=== PATIENT | female | born 1955 | race Caucasian/White ===

== ENCOUNTER 2020-08-04 09:33 | Emergency (ER) | payer OTHER, SELFPAY ==
[2020-08-04 09:45] VITALS: BP 145/91; PULSE 87; RESP 22; TEMP 36.8; O2SAT 100; BMI 25.9
--- NOTE | 2020-08-04 10:21 | HMH.EDUTC ---
[place] Disposition Clinical Impression: Vertigo Disposition: Home, Self-Care Condition on Discharge: Good Instructions: Vertigo, DI for Vertigo, Meclizine Additional Instructions: Slow steady movements When getting up from bed allow feet to dangle off the side of bed before getting up to help prevent falling Return if needed Follow up with your Family Doctor if no improvements or any worsening of symptoms Straight to ER if any life threatening symptoms Take medication as prescribed Prescriptions: Meclizine HCl [Antivert 12.5mg tablet] 12.5 mg PO TID PRN #15 tab PRN Reason: Dizziness Transmission Status: Pending to [facility] # methylPREDNISolone [Medrol 4mg tab] 4 mg PO DIRECTED #21 tab Transmission Status: Pending to [facility] # Referrals: Stefan Thomas [Primary Care Provider] - As needed Time of Disposition: 10:25 Medical Decision Making - Zhou Inquiry Pt receiving controlled substance: No Zhou was queried for this patient: No Vital Signs: 08/04/20 09:45 Temperature 98.2 F Temperature Source Oral Pulse Rate [Right Brachial] 87 Respiratory Rate 22 Blood Pressure [Right Arm] 145/91 H Blood Pressure Mean [Right Arm] 109 Blood Pressure Source [Right Arm] Automatic Cuff Blood Pressure Position [Right Arm] Sitting 02 Sat by Pulse Oximetry 100 Oxygen Delivery Method Room Air Orders (Tests/Meds): ED MEDICATIONS Discontinued Medications Generic Name Dose Route Start Last Admin Trade Name Freq PRN Reason Stop Dose Admin Meclizine HCl 12.5 mg 08/04/20 10:23 08/04/20 10:29 Meclizine 12.5mg Tablet PO 08/04/20 10:24 12.5 mg ONCE ONE Administration Medical Decision Narrative: Discussed with patient and due to age recommended transfer to the ED for CT of head if warranted and patient declined States that she thinks its from her ears and wanted to try medication and if no improvement will follow up with her doctor for further testing Patient states that dizziness is much better after medication [place] HPI - General Stated complaint: dizziness Time Seen by Provider: 08/04/20 10:21 Mode of Arrival: Ambulatory Source of Information: Patient Limitations: No Limitations Description of Symptoms (Recalled from Triage Doc. by RN): PATIENT C/O BEING DIZZY AND OFF-BALANCE SINCE YESTERDAY HEENT Symptoms (Recalled from RN notes): Yes Resp Symptoms (Recalled from RN notes): No Skin Symptoms (Recalled from RN notes): No MS Symptoms (Recalled from RN notes): No Functional Status (Recalled from RN notes): WNL - History of Present Illness Provider Complaint: Patient states that she has been feeling off balance and dizzy for several days after she was bent over working in the garden and raised up quickly States that when she turns to fast it feels like the room is spinning around her States that today she was still having symptoms so she came in States that she is not having any vision problems, denies headache or problems with vision - Related Data Previous Rx's Medication Instructions Recorded Meclizine HCl [Antivert 12.5mg 12.5 mg PO TID PRN #15 tab 08/04/20 tablet] methylPREDNISolone [Medrol 4mg 4 mg PO DIRECTED #21 tab 08/04/20 tab] Allergies Allergy/AdvReac Type Severity Reaction Status Date / Time No Known Allergies Allergy Verified 08/04/20 10:04 - Worker's Comp Is this a Worker's Comp case?: No [facility] History - Hepatitis A Screen Drug use history?: No High risk sexual behaviors?: No History of sexually transmitted infection?: No Currently employed?: No Childcare worker?: No Do you have indoor plumbing?: Yes Do you have electricity?: Yes Attestation statement:: This patient has been screened for Hepatitis A risk factors. I have reviewed the patient's past medical history: Yes Medical History: Reports:: Cancer - Social History Alcohol Intake: never Occupational Status: other ROS Obtained: Yes All systems reviewe
[2020-08-04 11:02] VITALS: BP 145/91; PULSE 87; RESP 22; TEMP 36.8; O2SAT 100
== END 2020-08-04 11:05 | disposition home or self-care (01) ==
PROVIDERS: Emergency Provider Nurse Practitioner; PCP Family Medicine
DX: R42 Dizziness and giddiness (principal)
CPT/HCPCS: 99202; G0463

== ENCOUNTER 2022-06-15 09:16 | Emergency (ER) | payer MEDICARE, OTHER, SELFPAY ==
[2022-06-15 09:30] VITALS: BP 153/84; PULSE 86; RESP 22; TEMP 36.8; O2SAT 100; BMI 24.0
--- NOTE | 2022-06-15 09:43 | EXP.UTC ---
Discharge Plan Disposition Patient Disposition: Home, Self-Care Condition: Good Prescriptions Prescriptions: No Action hydrochlorothiazide 12.5 mg tablet 12.5 mg PO DAILY Label Comments: TAKE 1 TABLET BY MOUTH EVERY DAY Referrals Follow up/Referrals: Brian Vargas JR, MD [Physician] - See instructions (Call office on Saturday for appointment) Issa Jorge DO [Staff Physician] - See instructions (Call office on Saturday for appointment) Sarbjit Dhillon [Primary Care Provider] - See instructions Activity Restrictions/Add. Instructions Additional Instructions/Restrictions: *RICE, Rest the extremity, Ice 15-20 minutes 3-4 times daily, Compress- wear the mike wrap as discussed as much as possible to help reduce swelling and pain, Elevate the extremity when at rest *Mike wrap/Orthoglass is for support and help control swelling, Be sure that is not to tight but not to loose either *Elevate when resting? *Ibuprofen 600-800mg every 6-8 hours as needed for pain an inflammation. If need something more can take Tylenol in between doses of Ibuprofen to help Call Orthopedic office for appointment for further evaluation and treatment Immediately follow up with your family doctor for new or worsening of symptoms, or no noticeable improvement over the next 3-5 days Clinical Impressions Clinical Impression: Fracture of wrist Qualifiers: Encounter type: initial encounter Fracture type: closed Laterality: left Qualified Code(s): S62.102A - Fracture of unspecified carpal bone, left wrist, initial encounter for closed fracture Instructions Patient Instructions: DI for Wrist Fracture, How To Perform RICE (Rest, Ice, Compress, Elevate), Ibuprofen Discharge ED Provider: Letty Hanley [facility] General Stated complaint: [id number] fell at home, left wrist Mode of Arrival: Ambulatory Source of Information: Patient Limitations: No Limitations Time Seen by Provider: 06/15/22 09:43 Description of Symptoms (Recalled from Triage Doc. by RN): PATIENT REPORTS SHE SLIPPED ON THE BATHROOM FLOOR LAST NIGHT AND INJURED LEFT WRIST HEENT Symptoms (Recalled from RN notes): No Resp Symptoms (Recalled from RN notes): No Skin Symptoms (Recalled from RN notes): No MS Symptoms (Recalled from RN notes): Yes Functional Status (Recalled from RN notes): WNL History of Present Illness Provider Complaint: Patient states that she slipped and fell getting out to the shower last night and landed on her left wrist States that she could still move her fingers and stuff so she thought it would be ok but when she woke up this morning her wrist and forearm was swollen and hurt when she would move it Related Data Home Medications Medication Instructions Recorded Confirmed hydrochlorothiazide 12.5 mg tablet 12.5 mg PO DAILY Hypertension 06/15/22 06/15/22 Allergies Allergy/AdvReac Type Severity Reaction Status Date / Time No Known Allergies Allergy Verified 08/04/20 10:04 Worker's Comp Is this a Worker's Comp case?: No PFSH ON LICENSE OF [facility] Disclaimer: The information contained in this section may have been updated after the patient was seen, as this information can be updated by other users. Social History Smoking Status: Unknown if ever smoked alcohol intake: never current occupational status: other Travel in the last 8 weeks: None ROS Obtained: Yes All systems reviewed & no additional complaints except as documented and Yes Systems reviewed as appropriate & no additional complaints except as documented ENT Ears, Nose, Mouth, and Throat: Reports system reviewed and no additional complaints, except as documented and Reports as per HPI Cardiovascular Cardiovascular: Reports system reviewed and no additional complaints, except as documented and Reports as per HPI Respiratory Respiratory: Reports system reviewed and no additional complaints, except as documented and Reports as per HPI Gastrointestinal Gastrointestingal: Reports system reviewed and
--- NOTE | 2022-06-15 09:44 | XR_ITS ---
FINAL REPORT CLINICAL HISTORY: Acute left forearm pain after fall COMPARISON: None FINDINGS: AP and lateral views of the left forearm are obtained. There is no prior exam for comparison. The proximal 2/3 to the left forearm without acute abnormality. There is no joint effusion at the elbow. Distal radius and ulnar styloid process fractures; please see wrist exam for further details. The wrist and elbow are intact. The soft tissues appear normal. IMPRESSION: Distal radius and ulnar styloid process fractures as described on wrist radiograph. Otherwise no acute abnormality. Reviewed, Interpreted and Dictated by Suyapa Senior MD Transcribed by Babs Lane Authenticated and [facility]
--- NOTE | 2022-06-15 09:44 | XR_ITS ---
FINAL REPORT CLINICAL HISTORY: Acute left wrist pain, fall COMPARISON: None FINDINGS: AP, oblique, and lateral views of the left wrist were obtained. There is no prior exam for comparison. There is a comminuted intra-articular fracture of the distal left radius with dorsal angulation of the distal fracture fragments. There is a nondisplaced ulnar styloid process fracture. There is mild degenerative joint disease. Diffuse soft tissue edema is noted. IMPRESSION: Left distal radius and ulnar styloid process fractures as above. Reviewed, Interpreted and Dictated by Suyapa Senior MD Transcribed by Babs Lane Authenticated and [facility]
[2022-06-15 11:59] VITALS: BP 153/84; PULSE 86; RESP 22; TEMP 36.8; O2SAT 100
== END 2022-06-15 12:06 | disposition home or self-care (01) ==
PROVIDERS: Emergency Provider Nurse Practitioner; PCP Family Medicine
DX: S62.102A Fracture of unspecified carpal bone, left wrist, initial encounter for closed fracture (principal); W01.0XXA Fall on same level from slipping, tripping and stumbling without subsequent striking against object, initial encounter
CPT/HCPCS: 29125; 73090; 73110; 99212; 99214; G0463

== ENCOUNTER → 2022-06-26 14:11 | Outpatient (CLI) | payer MEDICARE, OTHER, SELFPAY ==
--- NOTE | 2022-06-26 14:34 | ECG_ITS ---
APPROVED REPORT Exam: Resting ECG HR:85 bpm ECG Measurements Heart Rate 85 AXES MT 95 P 49 QRSd 85 QRS 41 QT 362 T 38 QTc 404 Conclusion SINUS RHYTHM WITH SHORT MT INTERVAL BORDERLINE ECG UNCONFIRMED REPORT Electronically signed by : Scot Paredes MD 06/26/2022 20:40:25
--- NOTE | 2022-06-26 15:04 | XR_ITS ---
FINAL REPORT CLINICAL HISTORY: pre op, cough FINDINGS: Two views of the chest were obtained. The heart size and pulmonary vascularity are within normal limits. The mediastinum is normal. No acute pulmonary abnormality is identified. There is no pneumothorax. The bony thorax is intact. There are postoperative changes in the right axilla. IMPRESSION: No active cardiopulmonary disease. Reviewed, Interpreted and Dictated by Pasquale Estrada III, MD Transcribed by Jessica Massey Authenticated and [facility]
[2022-06-26 15:32] LABS: Basophils # 0.1 K/mm3 (0-0.2); Basophils % 1.2 % (0.1-2.0); Eosinophils # 0.2 K/mm3 (0.0-0.4); Eosinophils % 2.4 % (0.1-12.0); Hematocrit 42.8 % (37.0-47.0); Hemoglobin 14.2 g/dL (12.2-16.2); Lymphocytes # 1.4 K/mm3 (0.7-4.5); Lymphocytes % 16.4 % (10-50); Mean Corpuscular HGB Conc 33.2 g/dL (31.8-35.4); Mean Corpuscular Hemoglobin 29.6 pg (27.0-31.2); Mean Corpuscular Volume 88.9 fl (81-99); Mean Platelet Volume 8.1 fl (7.4-10.4); Monocytes # 0.6 K/mm3 (0.1-1.0); Monocytes % 6.5 % (1.7-9.3); Neutrophils # 6.2 K/mm3 (1.8-7.8); Neutrophils % 73.5 % (37.0-80.0); Platelet Count 341 K/mm3 (142-424); Red Blood Count 4.81 M/mm3 (4.20-5.40); White Blood Count 8.4 K/mm3 (4.8-10.8)
[2022-06-26 15:50] LABS: Chloride 99 mmol/L (98-107); Potassium 3.8 mmoL/L (3.5-5.1); Sodium 140 mmol/L (136-145)
[2022-06-26 15:53] LABS: Alanine Aminotransferase 17 U/L (12-78); Albumin Level 4.9 g/dl (3.5-5.0); Albumin/Globulin Ratio 1.6 (1.1-1.8); Alkaline Phosphatase 80 U/L (38-126); Anion Gap 15.8 mEq/L (5-15); Aspartate Amino Transferase 24 U/L (14-36); Bilirubin,Total 0.6 mg/dl (0.2-1.3); Blood Urea Nitrogen 19 mg/dl (7-17); Carbon Dioxide 29 mmol/L (22.0-30.0); Estimated Glomerular Filt Rate 84 ml/min (>60); GFR (African American) 102 ML/MIN (>60); Glucose 79 mg/dl (74-100); Total Protein,Serum 7.9 g/dl (6.3-8.2)
== END ==
PROVIDERS: PCP Family Medicine; Visit Provider Orthopaedic Surgery
DX: R42 Dizziness and giddiness (principal); Z01.818 Encounter for other preprocedural examination; S52.502A Unspecified fracture of the lower end of left radius, initial encounter for closed fracture; M25.532 Pain in left wrist
CPT/HCPCS: 36415; 71046; 80053; 85025; 93005

== ENCOUNTER 2022-06-29 07:13 | Day surgery (SDC) | payer MEDICARE, OTHER, SELFPAY ==
[2022-06-26 16:41] VITALS: BMI 22.6
[2022-06-29] VITALS (10 sets, daily range): BP systolic 142–170; BP diastolic 86–97; PULSE 60–72; RESP 10–17; TEMP 3–37.4; O2SAT 96–100
--- NOTE | 2022-06-29 09:30 | XR_ITS ---
FINAL REPORT CLINICAL HISTORY: ORIF lt wrist 31 sec fluoro time FINDINGS: FLUORO TIME PROCEDURE: Fluoroscopy in the operating room. FINDINGS: Fluoroscopy time was provided by the radiology department for the clinical service. Two films were obtained for ORIF of the left distal radius. Fluoroscopy exposure time: 31 seconds IMPRESSION: See above Reviewed, Interpreted and Dictated by Pasquale Estrada III, MD Transcribed by Jane Singletary Authenticated and [facility]
--- NOTE | 2022-06-29 11:02 | EXP.ANES.CKL ---
[facility] Disclaimer: The information contained in this section may have been updated after the patient was seen, as this information can be updated by other users. Medical History (Updated 06/27/22 @ 09:32 by Issa Jorge DO) Hx of breast cancer Surgical History (Updated 06/26/22 @ 16:37 by Mojgan Dolan RN) Hx of colonoscopy Hx of right mastectomy Family History (Updated 06/26/22 @ 16:38 by Mojgan Dolan RN) Other Family history of coronary artery disease Social History (Updated 06/26/22 @ 16:38 by Mojgan Dolan RN) Smoking Status: Never smoker alcohol intake: never substance use type: denies use current occupational status: employed Travel in the last 8 weeks: None [facility] Anesthesia Checklist Patient Identification Patient Identification: Arm Band and Verbal (Name & ) Structural Data Admitted From: Home Planned Operative Procedure/s: Left Radius ORIF Verified Documents: Surgical Consent NPO Status Verified Time NPO: 00:00 Additional verifications Anesthesia Reactions: No Hx Blood Transfusions: No Blood Transfusion Reaction: No Airway Assessment C-Spine Mobility Assessed: Yes Dentition: Good Dentition Neurological Assessment Level of Consciousness: Awake, Alert and Appropriate Anesthesia Plan Anesthesia Risk discussed: Yes ASA Class: II Anesthesia Type: General w/block
--- NOTE | 2022-06-29 11:03 | P.OP_ITS ---
Date of procedure: 06/29/22 Pre-op Diagnosis:: Left distal radius fracture intra-articular DRUJ Post-op Diagnosis:: Same Procedure performed:: Open reduction internal fixation left distal radius fracture with volar plating intra-articular 2 part Surgeon:: Issa Jorge DO HAND PACKAGER:: Efrain Vick Anesthesia: GETA and regional Estimated blood loss (mL): 0 Operative findings:: See dictation Operative note:: Patient is identified preoperatively. Left wrist marked with yes my initials. Underwent a block with anesthesia. Taken the operating room. Placed upon operating bed. General anesthesia ministered airway secured. Left upper extremity prepped draped normal sterile fashion. Once prepped and draped final operative timeout performed to identify proper patient procedure and extremity. Everyone involved the case agreed. No counter indications beginning. Did receive preoperative antibiotics. Marking pen was used to make plan incision of the volar wrist. Esmarch was used to exsanguinate the extremity and pneumatic tourniquet was inflated 250 mmHg. Skin knife was used to incise the skin. Dissection was taken down over the FCR tendon. FCR tendon sheath was opened and the tendon was retracted radially throughout the procedure to protect the radial artery. Floor the FCR was opened. Self-retaining retractor placed. Pronator quadratus cut in L-type fashion off the distal radius. Fracture site seen and evacuated. Closed reduction maneuver performed for reduction of the distal radius. K wire was placed for pulmonary fixation. X-ray was brought into identify proper length of the radius and angulation. This was held with a K wire. Plate was selected from the [employer] volar plate set plate was attached under direct visualization with a cortical screw to the shaft. Then distal locking screws were placed across the fracture site. 2 additional locking screws placed in the shaft proximally. Final fixation obtained. X-rays taken the AP and lateral views saved. Copious irrigation wound performed. Deep layers closed with Vicryl stitch. Skin closed with nylon stitch. Sterile dressing with a volar wrist splint was placed. Patient waken anesthesia taken recovery stable condition. Condition: stable Disposition: PACU Complications:: None apparent
--- NOTE | 2022-06-29 11:04 | P.PNANES_ITS ---
[facility] Anesthesia Record Part I Anesthesia Record I Intake, IV Amount: 500 Estimated blood loss (mL): 5 Urine output (mL): 0 Blood Pressure: 143/91 SaO2: 96 Pulse Rate: 69 Respiratory Rate: 10 Temperature: 97.1 F Patient is:: Drowsy Stable to PACU at:: 11:00
== END 2022-06-29 12:10 | disposition home or self-care (01) ==
PROVIDERS: PCP Family Medicine; Visit Provider Orthopaedic Surgery
PROC: (CPT 25608; principal; 2022-06-29 09:15)
DX: S52.572A Other intraarticular fracture of lower end of left radius, initial encounter for closed fracture (principal); W18.2XXA Fall in (into) shower or empty bathtub, initial encounter; Y93.E1 Activity, personal bathing and showering; Y92.012 Bathroom of single-family (private) house as the place of occurrence of the external cause; I10 Essential (primary) hypertension; Z79.899 Other long term (current) drug therapy
CPT/HCPCS: 25608; 73100; 76000; 96374; C1713; J2405

== ENCOUNTER → 2022-07-17 11:22 | Outpatient (CLI) | payer MEDICARE, OTHER, SELFPAY ==
--- NOTE | 2022-07-17 11:26 | XR_ITS ---
FINAL REPORT CLINICAL HISTORY: left wrist pain surgery x 2 weeks ago COMPARISON: June 15, 2022 FINDINGS: 3 views of the left wrist were obtained. There has been interval fixation of a comminuted, displaced distal radial metaphysis fracture. The fracture fragments are partially reduced. There is a small fracture distal to the ulnar styloid. Overlying cast material has been applied. The joint spaces are intact. There is no soft tissue abnormality. IMPRESSION: Interval ORIF of a distal radius fracture. Reviewed, Interpreted and Dictated by Kd Pelletier MD Transcribed by Quang Aburto Authenticated and [facility]
== END ==
PROVIDERS: Visit Provider Orthopaedic Surgery
DX: S52.502A Unspecified fracture of the lower end of left radius, initial encounter for closed fracture (principal); M25.532 Pain in left wrist
CPT/HCPCS: 73110

== ENCOUNTER 2022-07-17 12:18 | Outpatient (RCR) | payer MEDICARE, OTHER, SELFPAY | END 2022-07-17 13:00 | disposition home or self-care (01) | LOC: OT 12:18 | PROVIDERS: Visit Provider Orthopaedic Surgery | DX: S52.572A Other intraarticular fracture of lower end of left radius, initial encounter for closed fracture (principal) | CPT/HCPCS: 97763 ==

== ENCOUNTER → 2022-08-14 10:51 | Outpatient (CLI) | payer MEDICARE, OTHER, SELFPAY ==
--- NOTE | 2022-08-14 10:54 | XR_ITS ---
FINAL REPORT CLINICAL HISTORY: lt wrist pain COMPARISON: 07/17/2022 FINDINGS: LEFT WRIST Three views demonstrate that the cast has been removed since the prior exam of July 17. An orthopedic side plate and screws secure the fracture of the distal radial metaphysis, with small fracture fragments again noted. There is no change in the positioning of the fracture fragments since the prior exam. The visualized joint spaces are normally aligned. The soft tissues are unremarkable. IMPRESSION: Internal fixation of a fracture of the distal radial metaphysis, unchanged since the prior exam of July 17. Reviewed, Interpreted and Dictated by Kd Pelletier MD Transcribed by Jaci Slaughter Authenticated and [facility]
== END ==
PROVIDERS: PCP Family Medicine; Visit Provider Orthopaedic Surgery
DX: S52.502A Unspecified fracture of the lower end of left radius, initial encounter for closed fracture (principal); M25.532 Pain in left wrist
CPT/HCPCS: 73110

== ENCOUNTER → 2022-09-25 10:59 | Outpatient (CLI) | payer MEDICARE, OTHER, SELFPAY ==
--- NOTE | 2022-09-25 11:05 | XR_ITS ---
FINAL REPORT CLINICAL HISTORY: left wrist orif COMPARISON: August 14, 2022 FINDINGS: 3 views of the left wrist were obtained. There are postoperative changes from ORIF of the distal radius. There is a chronic fracture of the ulnar styloid process. Mild degenerative changes are present. IMPRESSION: Stable postoperative changes. Reviewed, Interpreted and Dictated by Pasquale Estrada III, MD Transcribed by Quang Aburto Authenticated and [facility]
== END ==
PROVIDERS: PCP Family Medicine; Visit Provider Orthopaedic Surgery
DX: S52.502A Unspecified fracture of the lower end of left radius, initial encounter for closed fracture (principal); S62.102A Fracture of unspecified carpal bone, left wrist, initial encounter for closed fracture; M25.532 Pain in left wrist
CPT/HCPCS: 73110